=== PATIENT | female | born 1985 | race Caucasian/White ===

== ENCOUNTER → 2019-02-18 19:10 | Outpatient (CLI) | payer OTHER, SELFPAY ==
[2019-02-18 20:57] LABS: Urine N gonorrhoeae NOT DETECTED
[2019-02-18 21:05] LABS: Urine Chlamydia NOT DETECTED
== END ==
PROVIDERS: Visit Provider Physician Assistant
DX: N89.8 Other specified noninflammatory disorders of vagina (principal)
CPT/HCPCS: 87210; 87491; 87591